=== PATIENT | female | born 1990 | race Two or more races ===

== ENCOUNTER 2024-06-06 18:11 | Emergency (ER) | payer OTHER ==
[~2024-06-06] VITALS: Ht 157.5 cm; Wt 47.6 kg
[2024-06-06] MEDS ORDERED: FAMOTIDINE/PF 20 MG/2 ML VIAL IV PUSH STA (19:03)
[2024-06-06] MEDS ORDERED: MAG HYDROX/ALUMINUM HYD/SIMETH 30 ML BLIST.PACK PO STA (19:04)
[2024-06-06] MEDS ORDERED: ONDANSETRON HCL 2 MG/ML VIAL IV STA (19:04)
[2024-06-06] MEDS ORDERED: PRILOSEC OTC20 MG PO (20:13)
[2024-06-06] MEDS ORDERED: PEPCID AC20 MG PO (20:13)
== END 2024-06-06 20:24 | disposition home or self-care (01) ==
LOC: ER 18:13
DX: K21.9 Gastro-esophageal reflux disease without esophagitis (principal); Z88.0 Allergy status to penicillin